=== PATIENT | female | born 1955 | race Caucasian/White ===

== ENCOUNTER 2016-05-04 15:43 | Emergency (ER) | payer MEDICARE, MEDICAID ==
[2016-05-04] MEDS ORDERED: IOPAMIDOL 300 (61%) 100 ML VIAL IV ONE (15:44)
[2016-05-04 16:40] LABS: ABSOLUTE NEUTROPHIL COUNT 4.2 K/mm3 (1.8-7.7); BASO # 0.1 K/mm3 (0.0-0.2); BASO % 0.7 % (0.2-1.0); EOS # 0.1 (0.0-0.5); HEMATOCRIT 38.5 % (37.0-47.0); HEMOGLOBIN 11.9 gm/l (12.0-16.0); IMM NEUT% 0.3 % (0-1); LYMPH # 2.5 (1.0-4.8); LYMPH % 34.5 % (15-45); MEAN CELL VOLUME 83.9 fl (81.0-99.0); MEAN CORPUSCULAR HEMOGLOBIN 25.9 pg (27.0-31.0); MEAN CORPUSCULAR HGB CONC 30.9 g/dl (33.0-37.0); MEAN PLATELET VOLUME 9.4 fl (7.4-10.4); MONO # 0.4 (0.0-0.8); MONO % 5.9 % (4-12); NEUT % 57.6 % (43-75); PLATELET COUNT 262 K/mm3 (130-400); RED CELL DISTRIBUTION WIDTH 16.5 % (11.5-14.5)
[2016-05-04 17:00] LABS: CALCIUM 9.1 mg/dL (8.6-10.3)
--- NOTE | 2016-05-04 18:38 | CT ---
ORBIT CT WITH CONTRAST HISTORY: Swelling and redness of the left orbit. Following intravenous administration of 80 mL Isovue-300, contiguous axial images acquired through the orbits. FINDINGS: ORBITS: No asymmetric fatty stranding to suggest gross post septal cellulitis. No rim-enhancing collection is identified. The globes, lacrimal glands, and extraocular musculature assumes a symmetric appearance with preserved fatty attenuation at the orbital apices. VISIBLE INTRACRANIAL COMPARTMENT: No mass effect or abnormal enhancement. VISIBLE PARANASAL SINUSES: Grossly clear. PERIORBITAL SOFT TISSUES: Asymmetric left-sided palpebral soft tissue swelling with minor prominence of left-sided paranasal soft tissues. No rim-enhancing fluid collection. IMPRESSION: Minor palpebral soft tissue swelling on the left, correlate for preseptal orbital cellulitis. No evidence of post septal cellulitis or abscess formation. No CT features of sinusitis. Results were electronically transmitted to the electronic medical record at 05/04/2016 1833 hours.
[2016-05-04] MEDS ORDERED: AMOX 875 MG/CLAV 125 MG 1 EACH TABLET ONE (19:45)
== END 2016-05-04 20:17 | disposition home or self-care (01) ==
LOC: ED 15:43
DX: L03.211 Cellulitis of face (principal); H05.222 Edema of left orbit